=== PATIENT | female | born 1945 | race Two or more races ===

== ENCOUNTER → 2019-02-07 09:43 | Outpatient (CLI) | payer OTHER | END | disposition home or self-care (01) | LOC: LAB 09:43 | DX: J11.1 Influenza due to unidentified influenza virus with other respiratory manifestations (principal); R10.84 Generalized abdominal pain ==

== ENCOUNTER → 2019-02-07 | Outpatient (CLI) | payer OTHER | END | disposition home or self-care (01) | LOC: RAD 11:04 | DX: S90.922A Unspecified superficial injury of left foot, initial encounter (principal) ==